=== PATIENT | female | born 1995 | race Caucasian/White ===

== ENCOUNTER → 2024-02-07 15:20 | Outpatient (REF) | payer OTHER, SELFPAY | LOC: REG 15:20 | PROVIDERS: ATTENDING PHYSICIAN Obstetrics & Gynecology | DX: Z34.90 Encounter for supervision of normal pregnancy, unspecified, unspecified trimester (principal) | CPT/HCPCS: 86850; 86900; 86901; J2790 ==

== ENCOUNTER 2024-04-30 19:30 | Inpatient (IN) | payer OTHER, SELFPAY ==
[2024-04-30 19:36] VITALS: BP 132/78; BMI 25.9
[2024-04-30] MEDS: CYTOTEC 50 MICROGRAM VAG (20:30)
[2024-04-30 20:41] LABS: % Basophils 0.3 % (0-2); % Eosinophils 0.6 % (0-6); % Immature Granulocytes 1.3 % (0-0.5); % Lymphocytes 21.6 % (20.5-51.1); % Monocytes 8.3 % (1.7-9.3); % Neutrophils 67.9 % (42.2-75.2); Absolute Eosinophils 0.1 10^3/uL (0-0.7); Absolute Immature Granulocytes 0.2 10^3/uL (0-0.05); Absolute Lymphocytes 2.6 10^3/uL (1.2-3.4); Absolute Neutrophils 8.2 10^3/uL (1.4-6.5); Hematocrit 33.4 % (37.0-47.0); Hemoglobin 12.4 g/dL (12.0-16.0); Mean Corp Hgb Conc. 37.1 g/dL (33.0-37.0); Mean Corpuscular Hgb 31.3 pg (27.0-31.0); Mean Corpuscular Volume 84.3 fL (81.0-99.0); Mean Platelet Volume 11.6 fL (7.4-10.4); Nucleated Red Blood Cells % 0 %; Platelet Count 203 10^3/uL (130-400); Red Blood Cell Count 3.96 10^6/uL (4.20-5.40); Red Cell Dist. Width 12.6 % (11.5-14.5)
[2024-05-01] MEDS: CYTOTEC 50 MICROGRAM PO (00:47)
[2024-05-01] MEDS: LR 1000 IV ×2 (04:25→13:42)
[2024-05-01] MEDS: CYTOTEC PO ×4 (11:42→20:25)
[2024-05-01] MEDS: PITOCIN 30 UNITS/NSS 500 ML IV (13:45)
[2024-05-01] MEDS: MORPHINE SULFATE 2 MG IV (15:57)
[2024-05-01] MEDS: SUBLIMAZE 100 MCG EPIDURAL (17:39)
[2024-05-01] MEDS: FENTANYL/BUPIVACAINE 100 EPIDURAL (17:39)
[2024-05-02 05:41] LABS: Hematocrit 33.1 % (37.0-47.0); Hemoglobin 11.8 g/dL (12.0-16.0)
[2024-05-02] MEDS: MOTRIN 600 MG PO ×2 (08:00→16:47)
[2024-05-02] MEDS: PRENATAL PLUS 1 TABLET PO (08:00)
[2024-05-02 12:42] LABS: Syphilis/T. pallidum Ab Reflex Negative (Negative)
[2024-05-03] MEDS: PRENATAL PLUS 1 TABLET PO (08:00)
[2024-05-03] MEDS: SENOKOT-S 1 TABLET PO (08:00)
[2024-05-03] MEDS: MOTRIN 600 MG PO (08:00)
== END 2024-05-03 10:54 | disposition home or self-care (01) | DRG 807 ==
LOC: LDRP 19:30
PROVIDERS: Obstetrics & Gynecology; ADMITTING PHYSICIAN Obstetrics & Gynecology
PROC: 3E0P7VZ Introduction of Hormone into Female Reproductive, Via Natural or Artificial Opening (ICD-10-PCS; 2024-04-30)
PROC: 0HQ9XZZ Repair Perineum Skin, External Approach (ICD-10-PCS; 2024-05-01)
PROC: 10E0XZZ Delivery of Products of Conception, External Approach (ICD-10-PCS; 2024-05-01)
PROC: 4A1HXCZ Monitoring of Products of Conception, Cardiac Rate, External Approach (ICD-10-PCS; 2024-05-01)
PROC: 0U7C7ZZ Dilation of Cervix, Via Natural or Artificial Opening (ICD-10-PCS; 2024-05-01)
PROC: 0UQMXZZ Repair Vulva, External Approach (ICD-10-PCS; 2024-05-01)
PROC: 10907ZC Drainage of Amniotic Fluid, Therapeutic from Products of Conception, Via Natural or Artificial Opening (ICD-10-PCS; 2024-05-01)
DX: O48.0 Post-term pregnancy (principal); Z37.0 Single live birth; O70.0 First degree perineal laceration during delivery; Z3A.40 40 weeks gestation of pregnancy
CPT/HCPCS: 85014; 85018; 85025; 86780; 86850; 86900; 86901